=== PATIENT | female | born 1975 | race Caucasian/White ===

== ENCOUNTER 2023-11-02 03:54 | Emergency (ER) | payer OTHER, SELFPAY ==
[2023-11-02] VITALS (7 sets, daily range): BP systolic 106–136; BP diastolic 60–86; BMI 29.5
[2023-11-02 04:46] LABS: % Basophils 0.3 % (0-2); % Eosinophils 0.8 % (0-6); % Immature Granulocytes 0.3 % (0-0.5); % Lymphocytes 12.1 % (20.5-51.1); % Monocytes 9.7 % (1.7-9.3); % Neutrophils 76.8 % (42.2-75.2); Absolute Eosinophils 0.1 10^3/uL (0-0.7); Absolute Lymphocytes 1.5 10^3/uL (1.2-3.4); Absolute Monocytes 1.2 10^3/uL (0.1-0.6); Absolute Neutrophils 9.4 10^3/uL (1.4-6.5); Hematocrit 38.4 % (37.0-47.0); Hemoglobin 13.2 g/dL (12.0-16.0); Mean Corp Hgb Conc. 34.4 g/dL (33.0-37.0); Mean Corpuscular Volume 87.3 fL (81.0-99.0); Mean Platelet Volume 10.6 fL (7.4-10.4); Nucleated Red Blood Cells % 0 %; Platelet Count 257 10^3/uL (130-400); Red Cell Dist. Width 12.5 % (11.5-14.5); White Blood Cell Count 12.2 10^3/uL (4.8-10.8)
[2023-11-02 04:58] LABS: COVID-19 Antigen Negative (Negative)
[2023-11-02 05:01] LABS: Lactic Acid 1.2 mmol/L (0.7-2.0)
--- NOTE | 2023-11-02 05:01 | ED.GENMED ---
History of Present Illness
<DENIS Iqbal - Last Filed: 11/02/23 05:28>
General
Chief Complaint: Fever
Source: patient
Exam Limitations: none
Time Seen by Provider: 11/02/23 04:43
Nursing documentation reviewed up to this point in time: agreed with
History of Present Illness
History of Present Illness:
Pt is a 48 y/o F with complaints of fever, sore throat, headache, chest pain and 2 episodes of vomit since 11 pm. The pt reported that she had a 103F fever at home and there is associated chills, generalized weakness and swelling throughout her
body. The chest pain is described as a tightness and pressure and is rated a 6-7/10 in severity. There is associated SOB and nausea. She has complaints of headache and sore throat with associated ear congestion. The pt reported 2 episodes of watery,
green emesis and LUQ pain. She reported 1 episode of diarrhea and increased urinary frequency yesterday. Denies cough, constipation or blood in emesis or diarrhea.
The pt has a pmhx of 2x covid cases, the most recent positive test being 3 weeks ago. She stated that she had similar complaints of chest pressure to her first case of covid last year. The pt also reports a history of leg pain and numbness in her
feet for which she ambulates on a cane for and is scheduled to see a neurologist in 1 month. She reports that her symptoms are worsening her leg pain. Per records, pt has a history of IBS, PUD, diverticulosis, and migraines.
Past History
<DENIS Iqbal - Last Filed: 11/02/23 05:28>
Past History
ED Past Medical History: Other (IBS, PUD, migraine, diverticulosis), Other (COVID) and Other (Back pain)
ED Past Surgical History: Gynecological (Lap, PCOS) and Other (Gandectomy, Discectomy)
Social History
Tobacco: Former smoker
Alcohol: Occasional
Drug: None
Personal:
Living: with family
Employment: Other
Family History
Family History: Other
Review of Systems
<DENIS Iqbal - Last Filed: 11/02/23 05:28>
Review of Systems
Allergies reviewed?: Yes
Constitutional: Reports fever, fatigue and chills
EENT: Reports sore throat
Respiratory: Reports trouble breathing
Cardiac: Reports chest pain
ABD/GI: Reports abdominal pain (LUQ), nausea, vomiting and diarrhea
: Reports no symptoms
Musculoskeletal: Reports no symptoms
Skin: Reports no symptoms
Neurological: Reports headache, weakness and numbness
Endocrine: Reports no symptoms
Hematologic/Lymphatic: Reports no symptoms
Psychiatric: Reports no symptoms
Phy Exam
<DENIS Iqbal - Last Filed: 11/02/23 05:28>
General Physical Exam
General Presentation: moderate distress
General age: appears stated age
General Skin: feels hot and flushed
General Habitus: normal
General Mental: alert
General Hydration: appears well hydrated
ENT Exam
ENT Exam: neck supple and pharyngeal erythema
Eye Exam
Eye Exam: PERRL, EOMI, cornea clear and conjunctiva normal
Cardiovascular Exam
Cardiovascular Exam: normal peripheral pulses and tachycardia
Pulmonary Exam
Pulmonary Exam: lungs clear and decreased breath sounds
Respirations: mild increase in effort
Chest Wall: Left anterior: tenderness and Right anterior: tenderness
Gastrointestinal Exam
Gastrointestinal Exam: normal bowel sounds and soft
Palpation: left upper quadrant: Moderate tenderness, left lower quadrant: No tenderness, right upper quadrant: No tenderness and right lower quadrant: No tenderness
Neurological Exam
Neurological Exam: alert and oriented x3
Musculoskeletal Exam
Musculoskeletal Exam: neuro vasc intact
Skin Exam
Skin Exam: normal color and warmth
Psychiatric Exam
Psychiatric Exam: normal mood/affect
<Torrey Estrada DO - Last Filed: 11/02/23 10:09>
Physical Exam
Physical Exam:
Physical Exam
General: no apparent distress, not acutely ill
Neck: Red throat no exudate
Heart: s1/s2 regular rate and rhythm, no murmur. equal radial pulses.
Lungs: Diminished bilateral
Abdomen: Soft nontender
Neuro: alert and oriented. no focal neurological deficits
Skin: no rash
Psychiatric: well kept. interactive and cooperative
Extremities: no edema.
Sepsis
<DENIS Iqbal - Last Filed: 11/02/23 05:28>
Sepsis Screen
Sepsis Screen: Possible Sepsis
Date: 11/02/23
Time: 05:01
<Torrey Estrada, DO - Last Filed: 11/02/23 10:09>
Sepsis Screening
Sepsis Assessment: Sepsis Ruled Out
Sepsis Screen
Sepsis Screen: Sepsis Ruled Out
Date: 11/02/23
Time: 10:09
Course
<DENIS Iqbal - Last Filed: 11/02/23 05:28>
Orders/Labs/Results
Orders:
Orders
11/02/23 04:08
Cardiac Monitoring- Treatment ONCE
IV Insert/Care/Rem.- Treatment PRN
11/02/23 04:31
COVID-19 Antigen Urgent
Source: Nasal Swab
Complete Blood Count/With Diff Urgent
Comprehensive Metabolic Panel Urgent
HCG, Serum Qualitative Screen Urgent
Lactic Acid Q4H
Comment: ON ICE, CANCEL 2ND ORDER IF FIRST LACTIC ACID LEVEL <2
Influenza A+B Rapid Molecular Urgent
JANNA Source: Nasal Swab
Specimen Description:
11/02/23 05:22
CR Chest - 2 Views Urgent
Comment:
Reason For Exam: fever
11/02/23 06:07
0.9% Sodium Chloride 1000 ml [Nss] 1,000 ml IV BOLUS
Ibuprofen [Motrin] 600 mg PO NOW STA
Ipratropium/Albuterol Sulfate [Duoneb] 3 ml INH R NOW STA
11/02/23 06:39
Urinalysis Reflex To Culture Urgent
Date Specimen was Collected: 11/02/23
Time Specimen was Collected: 06:28
Urine Microscopic Reflex Cult Urgent
Rapid Strep Group A Urgent
JANNA Source: Throat/Pharynx
Specimen Description:
Date Specimen was Collected: 11/02/23
Time Specimen was Collected: 06:28
Urine Culture Urgent
JANNA Source: U
Specimen Description:
Date Specimen was Collected: 11/02/23
Time Specimen was Collected: 06:28
11/02/23 07:42
Add On- LAB Urgent
Tests Added?: urine culture
11/02/23 07:43
Add On- LAB Urgent
Tests Added?: hcg qualitative
CT Abd/pelvis Wo Iv Cont Urgent
Comment:
Reason For Exam: left flakn pain
Acetaminophen [Tylenol] 650 mg PO NOW STA
11/02/23 09:30
Ondansetron Injectable [Zofran] 4 mg IV NOW STA
Abnormal Lab Results
11/02/23 11/02/23
04:31 06:39
WBC 12.2 H 10^3/uL
(4.8-10.8)
MPV 10.6 H fL
(7.4-10.4)
Absolute Neuts (auto) 9.4 H 10^3/uL
(1.4-6.5)
Absolute Monos (auto) 1.2 H 10^3/uL
(0.1-0.6)
Neutrophils % 76.8 H %
(42.2-75.2)
Lymphocytes % 12.1 L %
(20.5-51.1)
Monocytes % 9.7 H %
(1.7-9.3)
Carbon Dioxide 20 L mmol/L
(22-30)
Glucose 123 H mg/dl
(70-99)
Urine Ketones Trace A
(Negative)
Urine Bilirubin 1+ A
(Negative)
Leukocyte Esterase Rfl Trace A
(Negative)
Urine Bacteria (Reflex) Few A
(Negative)
11/02/23 04:31
11/02/23 04:31
Vital Signs
Initial and Last Documented VS:
Initial Vital Signs
Temp Pulse Resp BP Pulse Ox
99.2 F 122 24 120/86 97
11/02/23 03:59 11/02/23 03:59 11/02/23 03:59 11/02/23 03:59 11/02/23 03:59
Last Documented Vital Signs
Temp Pulse Resp BP Pulse Ox
98.5 F 79 20 106/60 94
11/02/23 08:00 11/02/23 08:00 11/02/23 08:00 11/02/23 08:00 11/02/23 08:00
<Torrey Estrada, DO - Last Filed: 11/02/23 10:09>
Orders/Labs/Results
Orders:
Orders
11/02/23 04:08
Cardiac Monitoring- Treatment ONCE
IV Insert/Care/Rem.- Treatment PRN
11/02/23 04:31
COVID-19 Antigen Urgent
Source: Nasal Swab
Complete Blood Count/With Diff Urgent
Comprehensive Metabolic Panel Urgent
HCG, Serum Qualitative Screen Urgent
Lactic Acid Q4H
Comment: ON ICE, CANCEL 2ND ORDER IF FIRST LACTIC ACID LEVEL <2
Influenza A+B Rapid Molecular Urgent
JANNA Source: Nasal Swab
Specimen Description:
11/02/23 05:22
CR Chest - 2 Views Urgent
Comment:
Reason For Exam: fever
11/02/23 06:07
0.9% Sodium Chloride 1000 ml [Nss] 1,000 ml IV BOLUS
Ibuprofen [Motrin] 600 mg PO NOW STA
Ipratropium/Albuterol Sulfate [Duoneb] 3 ml INH R NOW STA
11/02/23 06:39
Urinalysis Reflex To Culture Urgent
Date Specimen was Collected: 11/02/23
Time Specimen was Collected: 06:28
Urine Microscopic Reflex Cult Urgent
Rapid Strep Group A Urgent
JANNA Source: Throat/Pharynx
Specimen Description:
Date Specimen was Collected: 11/02/23
Time Specimen was Collected: 06:28
Urine Culture Urgent
JANNA Source: U
Specimen Description:
Date Specimen was Collected: 11/02/23
Time Specimen was Collected: 06:28
11/02/23 07:42
Add On- LAB Urgent
Tests Added?: urine culture
11/02/23 07:43
Add On- LAB Urgent
Tests Added?: hcg qualitative
CT Abd/pelvis Wo Iv Cont Urgent
Comment:
Reason For Exam: left flakn pain
Acetaminophen [Tylenol] 650 mg PO NOW STA
11/02/23 09:30
Ondansetron Injectable [Zofran] 4 mg IV NOW STA
Abnormal Lab Results
11/02/23 11/02/23
04:31 06:39
WBC 12.2 H 10^3/uL
(4.8-10.8)
MPV 10.6 H fL
(7.4-10.4)
Absolute Neuts (auto) 9.4 H 10^3/uL
(1.4-6.5)
Absolute Monos (auto) 1.2 H 10^3/uL
(0.1-0.6)
Neutrophils % 76.8 H %
(42.2-75.2)
Lymphocytes % 12.1 L %
(20.5-51.1)
Monocytes % 9.7 H %
(1.7-9.3)
Carbon Dioxide 20 L mmol/L
(22-30)
Glucose 123 H mg/dl
(70-99)
Urine Ketones Trace A
(Negative)
Urine Bilirubin 1+ A
(Negative)
Leukocyte Esterase Rfl Trace A
(Negative)
Urine Bacteria (Reflex) Few A
(Negative)
11/02/23 04:31
11/02/23 04:31
Vital Signs
Initial and Last Documented VS:
Initial Vital Signs
Temp Pulse Resp BP Pulse Ox
99.2 F 122 24 120/86 97
11/02/23 03:59 11/02/23 03:59 11/02/23 03:59 11/02/23 03:59 11/02/23 03:59
Last Documented Vital Signs
Temp Pulse Resp BP Pulse Ox
98.5 F 79 20 106/60 94
11/02/23 08:00 11/02/23 08:00 11/02/23 08:00 11/02/23 08:00 11/02/23 08:00
<DENIS Iqbal - Last Filed: 11/02/23 05:28>
MDM/Problems Addressed
Differential Diagnosis Includes:
Influenza
splenic abscess
<Torrey Estrada DO - Last Filed: 11/02/23 10:09>
MDM/Problems Addressed
Differential Diagnosis Includes:
Influenza
Pneumonia UTI, nephritis
MDM/Problems Addressed:
Fever
<DENIS Iqbal - Last Filed: 11/02/23 05:28>
*Critical Care Note
Total Time (30-74mins, 75-104mins- exclusive of procedures): Not Applicable
<Torrey Estrada DO - Last Filed: 11/02/23 10:09>
Update Note
Update Note:
745 patient feeling a bit better labs noted chest x-ray noted, does have some pain in her left flank distant history of kidney stone will check CT to rule out stone with hydro she does have a fever
924 CT noted report noted
ED Attending Note
<DENIS Iqbal - Last Filed: 11/02/23 05:28>
-
Portions of this chart may have been created with voice recognition software.� Occasional wrong word or��sound alike� substitutions may have occurred due to the inherent limitations of voice recognition software.
<Torrey Estrada DO - Last Filed: 11/02/23 10:09>
ED Attending Note
Patient seen and examined by attending physician: Yes
I performed the substantive portion of visit, reviewed & personally made and approve the management plan that is documented in note by myself or RAFAELA.: Yes
ED Attending Note:
Seen with student examined independently 48-year-old female acute onset of fever chills sore throat nausea vomiting had COVID a few weeks ago, here she is nontoxic afebrile diminished breath sounds bilaterally, will check rapid strep chest x-ray
urinalysis fluids nebs Motrin
Discharge Plan
Departure
Patient Disposition: Home (Routine Discharge)
Date of Disposition: 11/02/23
Time of Disposition: :26
Patient with high blood pressure during this ER visit?: No
Condition: Good
Discharge Problem:
Fever
Instructions: Fever, Adult (DC)
Prescriptions:
New
ibuprofen 600 mg tablet
600 mg PO Q8H PRN (Reason: fever or pain) Qty: 20 0RF
ondansetron 4 mg tablet,disintegrating
4 mg PO Q8H PRN (Reason: vomiting) Qty: 14 0RF
No Action
fluticasone propionate [Flonase] 50 mcg/actuation [place],Suspension
2 spray INTRANASAL DAILY
vitamin C14-zoxse acid 0.5-1 mg Tablet
1 tab PO DAILY
Referrals:
Lucie Campoverde MD [Family Provider] - Next open appointment
Activity Restrictions/Additional Instructions:
Drink plenty of fluids Tylenol or ibuprofen for fever and bodyaches Zofran as needed for nausea return to the ER for worsening symptoms
Interventions
Interventions:
*Risk Screen - Suicide Last Done: 11/02/23 03:59
*General Assessment Last Done: 11/02/23 05:06
*Neglect/Abuse Screening Last Done: 11/02/23 03:59
ED- Fall Risk Assessment Last Done: 11/02/23 05:06
*ED COVID-19 Vaccine History Last Done: 11/02/23 05:06
ED- Neurological Assessment Last Done: 11/02/23 04:49
ED-Skin Assessment Last Done: 11/02/23 07:06
Discharge Date and Time
Print Language: MAORI
[2023-11-02 05:02] LABS: ALT (SGPT) 12 U/L (0-35); AST (SGOT) 21 U/L (14-36); Albumin 4.4 g/dl (3.5-5.0); Alkaline Phosphatase 95 U/L (38-126); Blood Urea Nitrogen 12 mg/dl (7-17); Calcium 9.3 mg/dl (8.4-10.2); Carbon Dioxide 20 mmol/L (22-30); Chloride 105 mmol/L (98-107); Glucose 123 mg/dl (70-99); Potassium 4.2 mmol/L (3.5-5.1); Sodium 139 mmol/L (135-145); Total Bilirubin 0.3 mg/dl (0.2-1.3); Total Protein 7.2 g/dl (6.3-8.2); eGFR > 60.00
[2023-11-02] MEDS: MOTRIN 600 MG PO (06:33)
[2023-11-02] MEDS: DUONEB 3 ML INH (06:33)
[2023-11-02] MEDS: NSS 1000 IV (06:34)
[2023-11-02 07:25] LABS: Urine Albumin Trace (Neg - Trace); Urine Bilirubin 1+ (Negative); Urine Character Clear (Clear); Urine Color Yellow; Urine Glucose Negative (Negative); Urine Ketone Trace (Negative); Urine Leukocyte Trace (Negative); Urine Nitrite Negative (Negative); Urine Occult Blood Negative (Negative); Urine Urobilinogen 1+ (Neg - 1+)
[2023-11-02 07:40] LABS: Urine Mucus Moderate; Urine Squamous Cell >30 /LPF (Few)
[2023-11-02 07:41] LABS: Urine Bacteria Few (Negative); Urine Red Blood Cell 0-2 /HPF (0-2)
[2023-11-02 08:24] LABS: HCG, Serum Qualitative Screen Negative
[2023-11-02] MEDS: ZOFRAN 4 MG IV (09:51)
== END 2023-11-02 10:15 | disposition home or self-care (01) ==
LOC: EMR 03:54
PROVIDERS: Student in an Organized Health Care Education/Training Program; EMERGENCY PHYSICIAN Emergency Medicine; FAMILY PHYSICIAN Emergency Medicine
DX: R50.9 Fever, unspecified (principal); J02.9 Acute pharyngitis, unspecified; R11.2 Nausea with vomiting, unspecified; R51.9 Headache, unspecified; R10.12 Left upper quadrant pain; R53.1 Weakness; R07.9 Chest pain, unspecified; R19.7 Diarrhea, unspecified; R20.0 Anesthesia of skin; Z11.52 Encounter for screening for COVID-19; R07.89 Other chest pain; H83.8X9 Other specified diseases of inner ear, unspecified ear; M79.606 Pain in leg, unspecified; R53.83 Other fatigue; K57.90 Diverticulosis of intestine, part unspecified, without perforation or abscess without bleeding; K58.9 Irritable bowel syndrome, unspecified; Z87.442 Personal history of urinary calculi; Z86.16 Personal history of COVID-19; Z87.891 Personal history of nicotine dependence; Z87.11 Personal history of peptic ulcer disease
CPT/HCPCS: 99285; 96374; 96361; 94640; 71046; 74176; 80053; 81003; 81015; 83605; 84703; 85025; 87070; 87086; 87502; 87811; 87880